=== PATIENT | male | born 1980 | race Caucasian/White ===

== ENCOUNTER 2021-03-04 02:01 | Emergency (ER) | payer OTHER, SELFPAY ==
[2021-03-04 02:05] VITALS: BP 126/83; PULSE 60; RESP 18; TEMP 36.7; O2SAT 99; BMI 30.8
--- NOTE | 2021-03-04 02:05 | ECG_ITS ---
[facility] Test Date: 2021-03-04 Pat Name: césar noyola Department: Room: Gender: Male Member Of [employer]: : 1980 Requested By: Nyla Orellana Order Number: [id number] Reading MD: Measurements Intervals [place] Rate: 55 P: 61 [place]: 194 QRS: 83 QRSD: 95 T: 58 QT: 394 QTc: 378 Interpretive Statements SINUS BRADYCARDIA ST ELEVATION, PROBABLY EARLY REPOLARIZATION [ST ELEVATION WITH NORMALLY INFLECTED T-WAVE] No previous ECG available for comparison [id number]
--- NOTE | 2021-03-04 02:05 | XRR_ITS ---
PROCEDURE INFORMATION: Exam: XR Chest Exam date and time: 03/04/2021 2:05 AM Age: 40 years old Clinical indication: Sternal or substernal pain; Additional info: Cp TECHNIQUE: Imaging protocol: XR of the chest. Views: 1 view. COMPARISON: No relevant prior studies available. FINDINGS: Lungs: Unremarkable. No consolidation. Pleural spaces: Unremarkable. No pleural effusion. No pneumothorax. Heart/Mediastinum: Unremarkable. No cardiomegaly. Bones/joints: Unremarkable. XR/XR chest 1V portable [id number] IMPRESSION: No acute disease.
--- NOTE | 2021-03-04 02:25 | W.ED.CHESTPA ---
HPI - Chest Pain General: Chief Complaint: Chest Pain Stated Complaint: cp Time Seen by Provider: 03/04/21 02:06 Source: patient Mode of arrival: ambulatory Limitations: no limitations History of Present Illness: HPI narrative: 40-year-old male states he woke up roughly 1 hour ago with epigastric pain that radiated to his chest. He states it was a rolling sharp pain in his chest. States that pain initially is an 8 out of 10 since improved and is now 2 out of 10. States he also had some diaphoresis. Denies any shortness of breath. He states he had a similar episode like this 6 or 7 years ago. He had elevated troponins I did a coronary cath that was negative. He states he also was admitted for diarrhea 3 years ago and had normal coronary cath then due to elevated troponins it was normal as well. He is not a smoker. No history of high blood pressure high cholesterol. States his father did have a heart attack but he was in his 60s. Associated symptoms: Reports nausea; Deny dyspnea or fever(s) Review of Systems Const: Denies: fever(s), chills, body aches or change in appetite Eyes: Denies: blurry vision or eye discomfort ENMT: Denies: throat pain or dental pain Card: Reports: chest pain Resp: Denies: dyspnea GI: Reports: nausea : Denies: dysuria Musc: Denies: neck pain or back pain Skin/Breast: Denies: rash Neuro: Denies: headache(s) Psych: Denies: depression Michael/Lymph: Denies: easy bruising All/Imm: Denies: urticaria Physical Exam Const: COMMON NORMALS: no acute distress, patient oriented x3 and healthy appearing HENMT: COMMON NORMALS: normocephalic and atraumatic HEAD & SCALP: normocephalic and atraumatic Eye: COMMON NORMALS: Equal, round and reactive pupils present and EOMs intact bilaterally PUPIL: Yes Equal, round and reactive pupils present Neck/C-Spine: COMMON NORMALS: full ROM and supple Chest: COMMONS NORMALS: normal inspection of the chest and normal palpation of entire chest wall Resp: COMMON NORMALS: normal respiratory effort, No retractions, No use of accessory muscles and clear to auscultation bilaterally AUSCULTATION: clear to auscultation bilaterally Cardio: COMMON NORMALS: regular rate, regular rhythm and No murmurs present (Cardio) RATE: regular rate RHYTHM: regular rhythm GI: COMMON NORMALS: Normal to inspection, nondistended, normoactive bowel sounds present, Soft to palpation, non-tender and no masses PALPATION: Yes Soft to palpation Extremity: COMMON NORMALS: normal to inspection and full ROM Neuro: COMMON NORMALS: patient oriented x3, moves all extremities and no focal motor deficits Psych: COMMON NORMALS: mental status grossly normal, Normal thought process present and cooperative THOUGHT PROCESS: Normal thought process present Skin: COMMON NORMALS: no rashes or lesions noted and no wounds GENERAL SKIN EXAM: no rashes or lesions noted Course Vital Signs: Vital signs: Vital Signs Temperature 98.1 F 03/04/21 02:05 Pulse Rate 60 03/04/21 02:05 Respiratory Rate 18 03/04/21 02:05 Blood Pressure 126/83 03/04/21 02:05 Pulse Oximetry 99 03/04/21 02:05 MDM - Chest Pain MDM Narrative: Medical decision making narrative: Patient presents here with chest pain that is since resolved. Patient's initial repeat EKGs here showed no acute abnormalities. Will have early repolarization. His initial repeat troponins here are negative. He has no signs of pulmonary embolism or aortic dissection. Patient's been symptom-free here and I feel he is stable for discharge. He has had 2 previous negative cath as well. We will get him follow-up with cardiology and he is return if worsening. He understands reasons plan. Lab Data: Labs: Lab Results 03/04/21 03/04/21 03/04/21 02:30 02:30 02:30 WBC 6.7 10^3/uL 10^3/ uL (4.0-10.0) RBC 4.81 10^6/uL 10^6 /uL (4.1-5.3) Hgb 14.8 g/dL g/dL (11.7-16.6) Hct 43.5 % % (42.0-52.0) MCV 90.4 fl fl (80-94) MCH 30.8 pg pg (28.0-34.0) MCHC 34.0 g/dL g/dL (30.0-36.0) RDW 12.1 % % (12.1-15.1) Plt Count 272 10^3/cmm 10^3 /cmm (130-400) MPV 9.5 fL fL (7.4-10.4) Neut % (Auto) 45.1 % % Lymph % (Auto) 44.7 % % [place] % (Auto) 8.5 % % Eos % (Auto) 1.0 % % Baso % (Auto) 0.6 % % Neut # (Auto) 3.03 10^3/uL 10^3 /uL (1.8-7.7) Lymph # (Auto) 3.0 10^3/uL 10^3/ uL (0.8-4.8) [place] # (Auto) 0.6 10^3/uL 10^3/ uL (0.2-0.9) Eos # (Auto) 0.1 10^3/uL 10^3/ uL (0.0-0.8) Baso # (Auto) 0.0 10^3/uL 10^3/ uL (0.0-0.1) Nucleated RBC % (a uto) 0 % % Nucleated RBCs # 0.0 /100WBC /100W BC Sodium 142 mmol/L mmol/L (136-145) Potassium 3.9 mmol/L mmol/L (3.5-5.1) Chloride 107 mmol/L mmol/L (98-107) Carbon Dioxide 23 mmol/L mmol/L (22-29) Anion Gap 15.9 (5-19) BUN 21 mg/dL H mg/dL (6-20) Creatinine 0.9 mg/dL mg/dL (0.7-1.2) GFR Calculation 93.9 mL/min mL/mi n (90-130) Glucose 93 mg/dL mg/dL (65-115) Calculated Osmolal ity 297 mOsm/kg H mOs m/kg (285-295) Calcium 9.4 mg/dL mg/dL (8.5-10.5) Total Bilirubin 0.7 mg/dL mg/dL (0.15-1.2) AST 13 U/L U/L (0-40) ALT 15 U/L U/L (0-41) Alkaline Phosphata se 54 IU/L IU/L (40-130) Troponin T Baselin e 6 ng/L ng/L (0-15) Troponin T 120 Min pilot point Delta Troponin T Total Protein 6.4 g/dL L g/dL (6.6-8.7) Albumin 4.3 g/dL g/dL (3.5-5.2) Globulin 2.1 g/dL g/dL (1.3-4.6) Lipase 29 U/L U/L (13-60) 03/04/21 04:30 WBC RBC Hgb Hct MCV MCH MCHC RDW Plt Count MPV Neut % (Auto) Lymph % (Auto) [place] % (Auto) Eos % (Auto) Baso % (Auto) Neut # (Auto) Lymph # (Auto) [place] # (Auto) Eos # (Auto) Baso # (Auto) Nucleated RBC % (a uto) Nucleated RBCs # Sodium Potassium Chloride Carbon Dioxide Anion Gap BUN Creatinine GFR Calculation Glucose Calculated Osmolal ity Calcium Total Bilirubin AST ALT Alkaline Phosphata se Troponin T Baselin e Troponin T 120 Min pilot point 7.54 ng/L ng/L (0-15) Delta Troponin T 1.54 ABS# ABS# (0-10) Total Protein Albumin Globulin Lipase Imaging Data^: CXR: Attestation: I personally reviewed and interpreted this imaging study as follows: My impression: no acute abnormality EKG Data^: EKG 1: Attestation: I personally reviewed and interpreted this EKG as follows: EKG interpretation date: 03/04/21 EKG interpretation time: 02:14 Interpretation: nsr hr 61 with early repol in ii, iii, avg no stemi qrs 97 qtc 378 EKG 2: Attestation: I personally reviewed and interpreted this EKG as follows: EKG interpretation date: 03/04/21 EKG interpretation time: 04:44 Interpretation: sinus chiquis hr 53 st elevation ii, iii avf c/w early repol no stemi. qrs 94 qtc 398 Discharge Plan Discharge Patient Disposition: Home Clinical Impression: Chest pain Qualifiers: Chest pain type: unspecified Qualified Code(s): R07.9 - Chest pain, unspecified Condition: Stable Discharge Orders: Discharge ED (Routine); Ordered 03/04/21 Ordered By: Nyla Orellana Referrals: Yamini Garrison MD [Physician] - 1-3 days Discharge Diet: Advance as tolerated Discharge Activity: Resume usual activity Patient Instructions: Chest Pain (ED) Coding Level of Care Code ED Scientific Research Associate for Chg Fwd Exam Comprehensive
[2021-03-04 02:50] LABS: Basophils % 0.6 %; Eosinophils # 0.1 10^3/uL (0.0-0.8); Hematocrit 43.5 % (42.0-52.0); Hemoglobin 14.8 g/dL (11.7-16.6); Lymphocytes % 44.7 %; Mean Corpuscular Hemoglobin 30.8 pg (28.0-34.0); Mean Corpuscular Volume 90.4 fl (80-94); Mean Platelet Volume 9.5 fL (7.4-10.4); Monocytes # 0.6 10^3/uL (0.2-0.9); Monocytes % 8.5 %; Neutrophils # 3.03 10^3/uL (1.8-7.7); Neutrophils % 45.1 %; Nucleated Red Blood Cells % 0 %; Platelet Count 272 10^3/cmm (130-400); Red Blood Count 4.81 10^6/uL (4.1-5.3); Red Cell Distribution Width 12.1 % (12.1-15.1); White Blood Count 6.7 10^3/uL (4.0-10.0)
[2021-03-04] MEDS: aspirin 325 mg Tablet PO (02:51)
[2021-03-04 03:08] LABS: Troponin(5th) Baseline 6 ng/L (0-15)
[2021-03-04 03:11] LABS: Alanine Aminotransferase 15 U/L (0-41); Albumin Level 4.3 g/dL (3.5-5.2); Alkaline Phosphatase 54 IU/L (40-130); Anion Gap 15.9 (5-19); Aspartate Amino Transferase 13 U/L (0-40); Blood Urea Nitrogen 21 mg/dL (6-20); Calcium 9.4 mg/dL (8.5-10.5); Carbon Dioxide 23 mmol/L (22-29); Chloride 107 mmol/L (98-107); Globulin 2.1 g/dL (1.3-4.6); Glomerular Filtration Rate 93.9 mL/min (90-130); Glucose 93 mg/dL (65-115); Lipase 29 U/L (13-60); Osmolality Calculated 297 mOsm/kg (285-295); Potassium 3.9 mmol/L (3.5-5.1); Sodium 142 mmol/L (136-145); Total Bilirubin 0.7 mg/dL (0.15-1.2); Total Protein 6.4 g/dL (6.6-8.7)
--- NOTE | 2021-03-04 04:05 | ECG_ITS ---
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 Measurements Intervals [place] Rate: 61 P: 66 [place]: 178 QRS: 88 QRSD: 97 T: 60 QT: 375 QTc: 379 Interpretive Statements SINUS RHYTHM EARLY REPOLARIZATION [ST ELEVATION WITH NORMALLY INFLECTED T-WAVE] INTERPRETATION BASED ON A DEFAULT AGE OF 40 YEARS No previous ECG available for comparison Electronically Signed On 03-05-2021 23:41:14 CDT by Yamini Garrison M.D. [id number] f
[2021-03-04] MEDS: sodium chloride 0.9% 1,000 ML 999 ML IV (04:41)
[2021-03-04 05:11] LABS: Troponin 5 2HR 7.54 ng/L (0-15); Troponin 5 2HR Delta 1.54 ABS# (0-10)
[2021-03-04 05:32] VITALS: BP 111/71; PULSE 58; RESP 16; O2SAT 98
--- NOTE | 2021-03-04 08:05 | ECG_ITS ---
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 Measurements Intervals [place] Rate: 53 P: 55 FL: 174 QRS: 75 QRSD: 94 T: 60 QT: 415 QTc: 391 Interpretive Statements SINUS BRADYCARDIA ST ELEVATION, PROBABLY EARLY REPOLARIZATION [ST ELEVATION WITH NORMALLY INFLECTED T-WAVE] Compared to ECG 03/04/2021 02:28:03 No significant changes Electronically Signed On 03-05-2021 23:41:44 CDT by Yamini Garrison M.D. [id number]
--- NOTE | 2021-03-04 13:25 | DCPLANNER ---
hotel assistant manager had message to schedule a follow up appointment for patient with heart care, Dr. Garrison. hotel assistant manager called [facility], spoke with Anjelica, gave clinic patients information. hotel assistant manager was told that patients information would be printed and reviewed. Clinic will call patient with appointment information.
--- NOTE | 2021-03-05 14:30 | DCPLANNER ---
Addendum entered by Cassie Agustin 07/02/21 18:04: Patient had a follow up appointment scheduled with heart care, this appointment was cancelled. Original Note: Patient has a follow up appointment scheduled for Friday March 12, 2021 at 12:[address] Zepeda. Clinic will call patient with appointment information.
== END 2021-03-04 05:34 | disposition home or self-care (01) ==
PROVIDERS: Emergency Provider Emergency Medicine
DX: R07.9 Chest pain, unspecified (principal)
CPT/HCPCS: 71045; 80053; 83690; 84484; 85025; 93005; 96360; 99284; J7030

== ENCOUNTER 2023-12-08 14:01 | Outpatient (CLI) | payer OTHER, SELFPAY ==
[2023-12-08 16:10] LABS: Adenovirus Not Detected (NOT DETECT); Chlamydia Pneumoniae Not Detected (NOT DETECT); Coronavirus 229E,HKU1,NL63,OC4 Not Detected (NOT DETECT); Human Metapneumovirus Not Detected (NOT DETECT); Human Rhinovirus/Enterovirus Not Detected (NOT DETECT); Influenza A Not Detected (NOT DETECT); Influenza A H1 Not Detected (NOT DETECT); Influenza A H1-2009 Not Detected (NOT DETECT); Influenza A H3 Not Detected (NOT DETECT); Influenza B Not Detected (NOT DETECT); Mycoplasma Pneumoniae Not Detected (NOT DETECT); Parainfluenza Virus Type 1 Not Detected (NOT DETECT); Parainfluenza Virus Type 2 Not Detected (NOT DETECT); Parainfluenza Virus Type 3 Not Detected (NOT DETECT); Parainfluenza Virus Type 4 Not Detected (NOT DETECT); Respiratory Syncytial Virus A Not Detected (NOT DETECT); Respiratory Syncytial Virus B Not Detected (NOT DETECT)
[2023-12-09 08:30] LABS: SARS-COV-2 Detected (NOT DETECT)
== END 2023-12-08 14:02 | disposition home or self-care (01) ==
LOC: LAB 14:06
PROVIDERS: PCP Nurse Practitioner Family; Visit Provider Nurse Practitioner Family
DX: B34.9 Viral infection, unspecified (principal)
CPT/HCPCS: 87486; 87581; 87633